=== PATIENT | male | born 1970 | race African-American/Black ===

== ENCOUNTER 2016-06-01 08:31 | Emergency (ER) | payer SELFPAY ==
[2016-06-01] MEDS ORDERED: KETOROLAC TROMETHAMINE INJ/PF 30 MG/1 ML SDV IV ONE (09:08)
[2016-06-01] MEDS ORDERED: DIPHENHYDRAMINE HCL 50 MG/ML VIAL IV ONE (09:08)
[2016-06-01] MEDS ORDERED: PROCHLORPERAZINE EDISYLATE INJ 10 MG/2 ML VIAL IV ONE (09:08)
[2016-06-01] MEDS ORDERED: NORMAL SALINE 1000 ML 1,000 ML IV ONE (09:08)
--- NOTE | 2016-06-01 09:40 | ER Document Report ---
ED Headache - General Chief Complaint: Headache Stated Complaint: HEADACHE Mode of Arrival: Ambulatory Information source: Patient Notes: Patient presents complaining of left-sided headache pain that started yesterday. Patient complains of nausea but denies any vomiting. Patient denies any head injury or fever. Patient states he does get occasional migraines and this is typical of migraines that he has had in the past. TRAVEL OUTSIDE OF THE [place] IN LAST 30 DAYS: No - HPI Patient complains to provider of: Headache Patient reports: Occasional migraines Onset: Yesterday Onset was: Gradual Timing: Still present Quality of pain: Throbbing Pain Level: 4 Associated symptoms: Nausea/vomiting - Nausea, Photophobia. 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 denies: Fever, Recent illness EENT: No symptoms reported Cardiovascular: No symptoms reported. denies: Chest pain Respiratory: No symptoms reported. denies: Cough, Short of breath Gastrointestinal: Nausea. denies: Abdominal pain, Vomiting Genitourinary: No symptoms reported Male Genitourinary: No symptoms reported Musculoskeletal: No symptoms reported. denies: Back pain, Neck pain Skin: No symptoms reported. denies: Rash Hematologic/Lymphatic: No symptoms reported Neurological/Psychological: Headaches. denies: Confusion, Lost consciousness Physical Exam - Vital signs Vitals: Temp Pulse Resp BP Pulse Ox 98.2 F 65 16 149/104 H 99 06/01/16 08:34 06/01/16 08:34 06/01/16 08:34 06/01/16 08:34 06/01/16 08:34 - General General appearance: Appears well, Alert In distress: None - HEENT Head: Normocephalic, Atraumatic Eyes: Normal Conjunctiva: Normal Extraocular movements intact: Yes Pupils: PERRL Ears: Normal External canal: Normal Tympanic membrane: Normal Nasal: Normal Mouth/Lips: Normal Mucous membranes: Normal Pharynx: Normal. No: Erythema, Exudate, Retropharyngeal abscess Neck: Normal, Supple. No: Lymphadenopathy, Meningismus - Respiratory Respiratory status: No respiratory distress Chest status: Nontender Breath sounds: Normal. No: Rales, Rhonchi, Stridor, Wheezing Chest palpation: Normal - Cardiovascular Rhythm: Regular Heart sounds: S1 appreciated, S2 appreciated Murmur: No - Abdominal Inspection: Normal Distension: No distension Tenderness: Nontender - Back Back: Normal, Nontender. No: CVA tenderness, Vertebra tenderness - Extremities General upper extremity: Normal inspection, Normal ROM General lower extremity: Normal inspection, Normal ROM - Neurological Neuro grossly intact: Yes Cognition: Normal [place] Coma Scale Eye Opening: Spontaneous [place] Coma Scale Verbal: Oriented [place] Coma Scale Motor: Obeys Commands Naomi Coma Scale Total: 15 Speech: Normal. No: Dysarthria Cranial nerves: Normal. No: Facial palsy, Tongue deviation Cerebellar coordination: Normal, Heel-hudson, Finger-nose rhombey, Rapid alt. movements. No: Gait ataxia Motor strength normal: LUE, RUE, LLE, RLE - Psychological Associated symptoms: Normal affect, Normal mood - Skin Skin Temperature: Warm Skin Moisture: Dry Skin Color: Normal Course - Re-evaluation Re-evalutation: 06/01/16 11:13 Patient resting in darkened room. Patient has yet to receive any his medications to treat his headache symptoms. 06/01/16 12:22 Patient resting with eyes closed, arouses easily to voice. Patient reports that headache pain is resolved this time. Discussed plan of care with patient, patient verbalized understanding and agrees with discharge plan of care. - Vital Signs Vital signs: Temp Pulse Resp BP Pulse Ox 97.8 F 65 15 125/75 97 06/01/16 12:36 06/01/16 08:34 06/01/16 12:37 06/01/16 12:37 06/01/16 12:37 Discharge - Discharge Clinical Impression: Headache Qualifiers: Headache type: unspecified Headache chronicity pattern: acute headache Intractability: not intractable Qualified Code(s): R51 - Headache Condition: Stable Disposition: HOME, SELF-CARE Instructions: Headache ([facility]), Pain Medication Injection ([facility]), Toradol Injection ([facility]), Use of Diphenhydramine, Intravenous Compazine for Headaches ( [facility]) Additional Instructions: Return immediately for any new or worsening symptoms Followup with your primary care provider, call tomorrow to make a followup appointment Forms: Return to Work Referrals: [facility] [Provider Group] - Follow up as needed
[2016-06-01 12:38] VITALS: BP 125/75
== END 2016-06-01 12:43 | disposition home or self-care (01) ==
LOC: ER 08:31
DX: R51 Headache (principal)
CPT/HCPCS: 99284; 96361; 96374; 96375; J1200; J1885; J0780; J7030

== ENCOUNTER 2016-10-30 00:44 | Emergency (ER) | payer SELFPAY ==
[2016-10-30 01:32] VITALS: BP 139/93
--- NOTE | 2016-10-30 02:12 | ER Document Report ---
ED General - General Chief Complaint: Arm Pain Stated Complaint: ARM PAIN,COUGH Time Seen by Provider: 10/30/16 01:59 Notes: Patient is a 46-year-old male who comes emergency department for chief complaint of pain in his left shoulder area, he states it feels like it is swollen at the top of his shoulder. 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 Patient also states that for 1 week he has had sinus congestion, postnasal drainage, and cough with some intermittent sinus headaches. He does not smoke. He denies fever. He denies dizziness, current headache, vomiting, chest pain, shortness of breath. TRAVEL OUTSIDE OF THE [place] IN LAST 30 DAYS: No - Related Data Allergies/Adverse Reactions: No Known Allergies Allergy (Verified 10/30/16 01:32) Past Medical History - General Information source: Patient - Social History Smoking Status: Never Smoker Frequency of alcohol use: None Drug Abuse: None Lives with: Family Family History: Reviewed & Not Pertinent, Hypertension Patient has suicidal ideation: No Patient has homicidal ideation: No Neurological Medical History: Reports: Hx Migraine Renal/ Medical History: Denies: Hx Peritoneal Dialysis Musculoskeltal Medical History: Denies Hx Gout - Immunizations Hx Diphtheria, Pertussis, Tetanus Vaccination: Yes Review of Systems - Review of Systems Constitutional: No symptoms reported EENT: See HPI Cardiovascular: No symptoms reported Respiratory: See HPI Gastrointestinal: No symptoms reported Genitourinary: No symptoms reported Male Genitourinary: No symptoms reported Musculoskeletal: See HPI Skin: No symptoms reported Hematologic/Lymphatic: No symptoms reported Neurological/Psychological: No symptoms reported Physical Exam - Vital signs Vitals: Temp Pulse Resp BP Pulse Ox 98.6 F 80 12 139/93 H 97 10/30/16 01:30 10/30/16 01:30 10/30/16 01:30 10/30/16 01:30 10/30/16 01:30 Interpretation: Normal - General General appearance: Appears well, Alert In distress: None - HEENT Head: Normocephalic, Atraumatic Eyes: Normal Conjunctiva: Normal Extraocular movements intact: Yes Eyelashes: Normal Pupils: PERRL Ears: Normal External canal: Normal Tympanic membrane: Normal Sinus: Other - Obvious sinus congestion and nasal congestion, no significant tenderness to the sinuses Nasal: Normal Mouth/Lips: Normal Mucous membranes: Normal Pharynx: Normal Neck: Normal - Respiratory Respiratory status: No respiratory distress Chest status: Nontender Breath sounds: Normal Chest palpation: Normal - Cardiovascular Rhythm: Regular Heart sounds: Normal auscultation Murmur: No - Abdominal Inspection: Normal Distension: No distension Bowel sounds: Normal Tenderness: Nontender Organomegaly: No organomegaly - Back Back: Normal, Nontender - Extremities General upper extremity: Other - Tenderness over the left supraspinatus and trapezius muscles, painful range of motion of the left shoulder, range of motion is still intact, strength intact, normal distal neurovascular exam. No signs of trauma. General lower extremity: Normal inspection, Nontender, Normal color, Normal ROM , Normal temperature, Normal weight bearing. No: Sandeep's sign - Neurological Neuro grossly intact: Yes Cognition: Normal Orientation: AAOx4 [place] Coma Scale Eye Opening: Spontaneous [place] Coma Scale Verbal: Oriented [place] Coma Scale Motor: Obeys Commands [place] Coma Scale Total: 15 Speech: Normal Motor strength normal: LUE, RUE, LLE, RLE Sensory: Normal - Psychological Associated symptoms: Normal affect, Normal mood - Skin Skin Temperature: Warm Skin Moisture: Dry Skin Color: Normal Course - Re-evaluation Re-evalutation: Patient with upper respiratory infection with worsening sinus symptoms for 1 week. After discussion agreed to give him amoxicillin. Patient with tenderness in the supraspinatus and trapezius muscles in the left shoulder with painful range of motion but range of motion is still intact. X- ray with no concerning abnormalities. Discussed different possibilities and treatment with patient, after discussion patient will be treated with prednisone , Robaxin, and given recommendations for follow-up. Discussed return precautions. Patient states understanding and agreement. - Vital Signs Vital signs: Temp Pulse Resp BP Pulse Ox 98.6 F 80 12 139/93 H 97 10/30/16 01:30 10/30/16 01:30 10/30/16 01:30 10/30/16 01:30 10/30/16 01:30 - Diagnostic Test Radiology reviewed: Image reviewed, Reports reviewed Discharge - Discharge Clinical Impression: Upper back pain Left shoulder pain Qualifiers: Chronicity: acute Qualified Code(s): M25.512 - Pain in left shoulder Sinusitis Qualifiers: Sinusitis location: unspecified location Chronicity: acute Recurrence: non- recurrent Qualified Code(s): J01.90 - Acute sinusitis, unspecified Condition: Stable Disposition: HOME, SELF-CARE Additional Instructions: The x-ray does not show any abnormalities. Your examination suggests this is either muscle spasm, impingement, rotator cuff, or other uncertain source not seen on x-ray. I recommend taking the prescribed medications, applying heat to your upper back, and following up with primary care for additional evaluation. Continue anti-cold remedies. Return to the emergency department for any concerning symptoms including numbness, redness to the area, fever, severe swelling, or any other concerning symptoms. Prescriptions: Amoxicillin Trihydrate [Amoxil 875 mg Tablet] 1 tab PO BID #20 tablet Methocarbamol [Robaxin 750 mg Tablet] 750 mg PO Q6 #20 tablet Prednisone [Deltasone 10 mg Tablet] 10 mg PO ASDIR PRN #21 tablet PRN Reason: Referrals: IVAN GARDNER MD [ACTIVE STAFF] - Follow up as needed
--- NOTE | 2016-10-30 02:38 | RADIOLOGY REPORT (SQ) ---
EXAM DESCRIPTION: SHOULDER LEFT 2 OR MORE VIEWS COMPLETED DATE/TIME: 10/30/2016 2:28 am REASON FOR STUDY: pain, difficult ROM COMPARISON: None. NUMBER OF VIEWS: Three views. TECHNIQUE: Internal rotation, external rotation, and Y view images acquired of the left shoulder. LIMITATIONS: None. FINDINGS: MINERALIZATION: Normal. BONES: No acute fracture or dislocation. No worrisome bone lesions. JOINTS: No dislocation. VISUALIZED LUNGS AND RIBS: No pneumothorax. No rib fracture. SOFT TISSUES: No radiopaque foreign body. OTHER: No other significant finding. IMPRESSION: NEGATIVE STUDY OF THE LEFT SHOULDER. NO RADIOGRAPHIC EVIDENCE OF ACUTE INJURY. TECHNICAL DOCUMENTATION: JOB ID: [id number] [employer]- All Rights Reserved
== END 2016-10-30 03:52 | disposition home or self-care (01) ==
LOC: ER 00:44
DX: M54.6 Pain in thoracic spine (principal); M25.512 Pain in left shoulder; J01.90 Acute sinusitis, unspecified
CPT/HCPCS: 99283

== ENCOUNTER 2017-08-30 20:26 | Emergency (ER) | payer SELFPAY ==
[2017-08-30 20:58] VITALS: BP 150/83
== END 2017-08-30 22:00 | disposition left against medical advice (07) ==
LOC: ER 20:26
DX: Z53.21 Procedure and treatment not carried out due to patient leaving prior to being seen by health care provider (principal)
CPT/HCPCS: 99282

== ENCOUNTER 2017-11-13 15:36 | Emergency (ER) | payer OTHER ==
[2017-11-13] MEDS ORDERED: HYDROCODONE/ACETAMINOPHEN 5-325 MG TABLET PO ONE (16:23)
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
[2017-11-13 18:14] VITALS: BP 130/98
== END 2017-11-13 18:12 | disposition home or self-care (01) ==
LOC: ER 15:36
DX: M54.5 Low back pain (principal); M25.561 Pain in right knee; V13.9XXA Unspecified pedal cyclist injured in collision with car, pick-up truck or van in traffic accident, initial encounter; Y93.55 Activity, bike riding
CPT/HCPCS: 99283

== ENCOUNTER 2017-12-08 12:03 | Emergency (ER) | payer SELFPAY ==
[2017-12-08] MEDS ORDERED: ASPIRIN 325 MG TABLET, ENT COATED PO ONE (12:26)
--- NOTE | 2017-12-08 12:28 | ER Document Report ---
ED Medical Screen (RME) - General Chief Complaint: Chest Pain Stated Complaint: CHEST PAIN,BACK PAIN, HEADACHE Time Seen by Provider: 12/08/17 12:26 Mode of Arrival: Wheelchair Information source: Patient TRAVEL OUTSIDE OF THE [place] IN LAST 30 DAYS: No - HPI Patient complains to provider of: cp Onset: This morning - pt states CP started earlier this am and still present after taking ASA. Denies SOB - Related Data Allergies/Adverse Reactions: No Known Allergies Allergy (Verified 12/08/17 12:26) Past Medical History - Social History Chew tobacco use (# tins/day): No Frequency of alcohol use: Rare Drug Abuse: None Neurological Medical History: Reports: Hx Migraine Renal/ Medical History: Denies: Hx Peritoneal Dialysis Musculoskeltal Medical History: Denies Hx Gout - Immunizations Hx Diphtheria, Pertussis, Tetanus Vaccination: Yes Physical Exam - Vital signs Vitals: Temp Pulse Resp BP Pulse Ox 98.6 F 76 14 145/101 H 98 12/08/17 12:08 12/08/17 12:08 12/08/17 12:08 12/08/17 12:08 12/08/17 12:08 Course - Vital Signs Vital signs: Temp Pulse Resp BP Pulse Ox 98.6 F 76 14 145/101 H 98 12/08/17 12:08 12/08/17 12:08 12/08/17 12:08 12/08/17 12:08 12/08/17 12:08
[2017-12-08 12:50] LABS: ABSOLUTE LYMPHOCYTES (AUTO) 1.1 10^3/uL (0.5-4.7); ABSOLUTE MONOCYTES (AUTO) 0.4 10^3/uL (0.1-1.4); ABSOLUTE NEUT (AUTO) 3.2 10^3/uL (1.7-8.2); BASOPHILS % (AUTO) 0.8 % (0-2); EOSINOPHILS % (AUTO) 0.9 % (0-6); HEMATOCRIT 44.7 % (37.9-51.0); HEMOGLOBIN 15.2 g/dL (13.5-17.0); MEAN CORPUSCULAR HEMOGLOBIN 30.2 pg (27.0-33.4); MEAN CORPUSCULAR HGB CONC 34.1 g/dL (32.0-36.0); MEAN CORPUSCULAR VOLUME 89 fl (80-97); MONOCYTES % (AUTO) 7.9 % (3-13); PLATELET COUNT 299 10^3/uL (150-450); RED BLOOD COUNT 5.04 10^6/uL (4.35-5.55); RED CELL DISTRIBUTION WIDTH 13.6 % (11.5-14.0); SEGMENTED NEUTROPHILS % (AUTO) 67.4 % (42-78); TOTAL CELLS COUNTED % (AUTO) 100 %; WHITE BLOOD COUNT 4.7 10^3/uL (4.0-10.5)
--- NOTE | 2017-12-08 13:00 | RADIOLOGY REPORT (SQ) ---
EXAM DESCRIPTION: CHEST 2 VIEWS COMPLETED DATE/TIME: 12/08/2017 12:52 pm REASON FOR STUDY: cp COMPARISON: None. EXAM PARAMETERS: NUMBER OF VIEWS: two views TECHNIQUE: Digital Frontal and Lateral radiographic views of the chest acquired. RADIATION DOSE: NA LIMITATIONS: none FINDINGS: LUNGS AND PLEURA: No opacities, masses or pneumothorax. No pleural effusion. MEDIASTINUM AND HILAR STRUCTURES: No masses or contour abnormalities. HEART AND VASCULAR STRUCTURES: Heart normal size. No evidence for failure. BONES: No acute findings. HARDWARE: None in the chest. OTHER: No other significant finding. IMPRESSION: NO ACUTE RADIOGRAPHIC FINDING IN THE CHEST. TECHNICAL DOCUMENTATION: JOB ID: [id number] [employer]- All Rights Reserved Reading location - IP/workstation name: [email or web address]
[2017-12-08 13:08] LABS: ALANINE AMINOTRANSFERASE 29 U/L (21-72); ALKALINE PHOSPHATASE 53 U/L (38-126); ANION GAP 10 (5-19); ASPARTATE AMINO TRANSFERASE 19 U/L (17-59); BILIRUBIN,DIRECT 0.2 mg/dL (0.0-0.4); BILIRUBIN,TOTAL 1.4 mg/dL (0.2-1.3); BLOOD UREA NITROGEN 11 mg/dL (7-20); CALCIUM 9.3 mg/dL (8.4-10.2); CARBON DIOXIDE 29 mmol/L (22-30); CHLORIDE 103 mmol/L (98-107); CREATINE KINASE 242 U/L (55-170); GLUCOSE 128 mg/dL (75-110); POTASSIUM 3.8 mmol/L (3.6-5.0); SODIUM 142.4 mmol/L (137-145); TOTAL PROTEIN 7.1 g/dL (6.3-8.2)
[2017-12-08 13:20] LABS: CREATINE KINASE MB 0.69 ng/mL (<4.55); TROPONIN I < 0.012 ng/mL
[2017-12-08] MEDS ORDERED: PROCHLORPERAZINE EDISYLATE INJ 10 MG/2 ML VIAL IV ONE (14:51)
[2017-12-08] MEDS ORDERED: KETOROLAC TROMETHAMINE INJ/PF 30 MG/1 ML SDV IV ONE (14:51)
[2017-12-08] MEDS ORDERED: ONDANSETRON HCL INJ/PF 4 MG/2 ML SDV IV ONE (14:51)
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
[2017-12-08 17:06] VITALS: BP 131/86
--- NOTE | 2017-12-08 22:04 | EKG REPORT ---
SEVERITY:- ABNORMAL ECG - SINUS RHYTHM PROBABLE LEFT ATRIAL ABNORMALITY ABNRM R PROG, CONSIDER ASMI OR LEAD PLACEMENT : Confirmed by: Jane Wall MD 08-Dec-2017 22:03:34
== END 2017-12-08 17:05 | disposition home or self-care (01) ==
LOC: ER 12:03
DX: R07.89 Other chest pain (principal); R51 Headache; T14.8XXD Other injury of unspecified body region, subsequent encounter; X58.XXXD Exposure to other specified factors, subsequent encounter; Z98.890 Other specified postprocedural states; M54.6 Pain in thoracic spine; R11.0 Nausea; I10 Essential (primary) hypertension
CPT/HCPCS: 93005; 99285; 96374; 96375; 36415; 82553; 82550; 85025; 80053; 84484; 71046; 93010; J1885; J0780; J2405

== ENCOUNTER 2017-12-12 10:49 | Emergency (ER) | payer OTHER ==
[2017-12-12 10:58] VITALS: BP 156/93
--- NOTE | 2017-12-12 11:14 | ER Document Report ---
HPI - HPI Patient complains to provider of: Suture removal forehead Onset: Other - 8 Days ago Pain Level: 3 Context: 47-year-old male with a vertical laceration forehead with 8 sutures placed in the emergency department. He is here for removal. Associated Symptoms: None Exacerbated by: Denies Relieved by: Denies Similar symptoms previously: No Recently seen / treated by doctor: No - ROS ROS below otherwise negative: Yes Systems Reviewed and Negative: Yes All other systems reviewed and negative Past Medical History - General Information source: Patient - Social History Smoking Status: Current Every Day Smoker Chew tobacco use (# tins/day): No Family History: Reviewed & Not Pertinent, Hypertension Patient has suicidal ideation: No Patient has homicidal ideation: No Neurological Medical History: Reports: Hx Migraine Renal/ Medical History: Denies: Hx Peritoneal Dialysis Musculoskeletal Medical History: Denies Hx Gout Surgical Hx: Negative - Immunizations Hx Diphtheria, Pertussis, Tetanus Vaccination: Yes Vertical Provider Document - CONSTITUTIONAL Agree With Documented VS: Yes Exam Limitations: No Limitations - INFECTION CONTROL TRAVEL OUTSIDE OF THE [place] IN LAST 30 DAYS: No - DERM Integumentary: Laceration - Healed vertical 2 cm laceration central forehead. Course - Vital Signs Vital signs: Temp Pulse Resp BP Pulse Ox 98.5 F 77 14 156/93 H 97 12/12/17 10:57 12/12/17 10:57 12/12/17 10:57 12/12/17 10:57 12/12/17 10:57 Discharge - Discharge Clinical Impression: Visit for suture removal Condition: Good Disposition: HOME, SELF-CARE Instructions: Suture Removal Additional Instructions: vaseline daily to er any concerns Forms: Return to Work
== END 2017-12-12 11:21 | disposition home or self-care (01) ==
LOC: ER 10:49
DX: S01.81XD Laceration without foreign body of other part of head, subsequent encounter (principal); X58.XXXD Exposure to other specified factors, subsequent encounter; F17.200 Nicotine dependence, unspecified, uncomplicated

== ENCOUNTER 2018-04-04 13:45 | Emergency (ER) | payer OTHER ==
[2018-04-04 14:18] VITALS: BP 147/86
--- NOTE | 2018-04-04 14:46 | ER Document Report ---
HPI - HPI Time Seen by Provider: 04/04/18 14:26 Pain Level: 5 Notes: Patient is a 48-year-old male who presents emergency department complaining of left dorsal foot pain status post injury prior to arrival. Patient states that a bookcase fell on his foot. Patient states that he still able to ambulate without difficulty otherwise. He has not noticed any bruising or swelling. Patient states that he also has a bony bump near his left shoulder has been bothersome over the last 6 months. He does not recall any injury. No other concerns or complaints. Denies drug allergies. Denies any headache, fever, neck pain, URI, sore throat, chest pain, palpitations, syncope, cough, shortness of breath, wheeze, dyspnea, abdominal pain, nausea/vomiting/diarrhea, urinary retention, dysuria, hematuria, loss of control of bowel or bladder, numbness/tingling, muscle paralysis/weakness, or rash. - ROS Systems Reviewed and Negative: Yes All other systems reviewed and negative Past Medical History - Social History Smoking Status: Current Every Day Smoker Family History: Reviewed & Not Pertinent, Hypertension Patient has suicidal ideation: No Patient has homicidal ideation: No Neurological Medical History: Reports: Hx Migraine Renal/ Medical History: Denies: Hx Peritoneal Dialysis Musculoskeletal Medical History: Denies Hx Gout - Immunizations Hx Diphtheria, Pertussis, Tetanus Vaccination: Yes Vertical Provider Document - CONSTITUTIONAL Agree With Documented VS: Yes Notes: PHYSICAL EXAMINATION: GENERAL: Well-appearing, well-nourished and in no acute distress. LUNGS: Breath sounds clear to auscultation bilaterally and equal. No wheezes rales or rhonchi. HEART: Regular rate and rhythm without murmurs, rubs, gallops. Musculoskeletal: Lt foot/ankle: No erythema/ecchymosis/deformity/swelling. FROM to passive/active. Strength 5+/5. N/V intact distal. + tenderness to the dorsal foot. No bony tenderness of the ankle. Achilles intact. Lt shoulder: FROM to passive/active. Strength 5+/5 due to pain. Neg speed test. No crepitus. No erythema or warmth. No deformity or ecchymosis. RC intact 5+/5 strength. + mild tenderness to the left AC joint. Extremities: No cyanosis, clubbing, or edema b/l. Peripheral pulses 2+. Capillary refill less than 3 seconds. NEUROLOGICAL: Normal speech, normal gait. Normal sensory, motor exams PSYCH: Normal mood, normal affect. SKIN: Warm, Dry, normal turgor, no rashes or lesions noted. - INFECTION CONTROL TRAVEL OUTSIDE OF THE [place] IN LAST 30 DAYS: No Course - Re-evaluation Re-evalutation: 04/04/18 15:25 Patient is an afebrile, well-hydrated, 48-year-old male who presents to the ED with left foot pain and lateral clavicular pain. Vitals are acceptable without any significant tachycardia, tachypnea, or hypoxia. PE is otherwise unremarkable for any neurovascular compromise, obvious tendon/ligament rupture, obvious fracture/dislocation, septic joint. X-rays unremarkable for any acute pathology. Patient declined any Tylenol or ice. Patient is nontoxic-appearing. Patient is able to ambulate and weight-bear. No other labs or imaging warranted at this time based on H&P. Conservative measures otherwise for symptoms. Recheck with your PCM in 3-5 days. Consider consult orthopedics. Return to the ED with any worsening/concerning symptoms otherwise as reviewed in discharge. Patient is in agreement. - Vital Signs Vital signs: Temp Pulse Resp BP Pulse Ox 98.6 F 57 L 16 147/86 H 99 04/04/18 14:17 04/04/18 14:17 04/04/18 14:17 04/04/18 14:17 04/04/18 14:17 Discharge - Discharge Clinical Impression: Left foot pain, Pain in left acromioclavicular joint Condition: Stable Disposition: HOME, SELF-CARE Additional Instructions: Rest, Ice, Compression, Elevation Tylenol/ibuprofen as needed Light stretches daily Strength exercises as able Moist heat and massage may help F/u with your PCP in 3-5 days for a recheck Consider consult(s) with Orthopedics/physical therapy for ongoing/worsening symptoms Return to the ED with any worsening symptoms and/or development of fever, headache, chest pain, palpitations, syncope, shortness of breath, trouble breathing, abdominal pain, n/v/d, muscle weakness/paralysis, numbness/tingling, swelling, redness, or other worsening symptoms that are concerning to you. Prescriptions: Naproxen 500 mg PO BID #10 tablet Forms: Elevated Blood Pressure, Smoking Cessation Education Referrals: [facility] [Provider Group] - Follow up as needed
--- NOTE | 2018-04-04 15:15 | RADIOLOGY REPORT (SQ) ---
EXAM DESCRIPTION: CLAVICLE LEFT COMPLETED DATE/TIME: 04/04/2018 3:05 pm REASON FOR STUDY: pain lateral near AC joint x months COMPARISON: None. NUMBER OF VIEWS: Two views. TECHNIQUE: Frontal and angled images were acquired of the left clavicle. LIMITATIONS: None. FINDINGS: MINERALIZATION: Normal. BONES: No acute fracture or dislocation. No worrisome bone lesions. Minimal osteophytosis at the ac romioclavicular joint. SOFT TISSUES: No obvious swelling or foreign body. OTHER: No other significant finding. IMPRESSION: No evidence of acute bony abnormality. Minimal degenerative changes at the acromioclavi cular joint. TECHNICAL DOCUMENTATION: JOB ID: [id number] [employer]- All Rights Reserved Reading location - IP/workstation name: [email or web address]
--- NOTE | 2018-04-04 15:16 | RADIOLOGY REPORT (SQ) ---
EXAM DESCRIPTION: FOOT LEFT COMPLETE COMPLETED DATE/TIME: 04/04/2018 3:06 pm REASON FOR STUDY: pain s/p crush injury today COMPARISON: None. NUMBER OF VIEWS: Three views. TECHNIQUE: AP, lateral and oblique radiographic images acquired of the left foot. LIMITATIONS: 10/16/2012 FINDINGS: MINERALIZATION: Normal. BONES: No acute fracture or dislocation. No worrisome bone lesions. JOINTS: No effusions. SOFT TISSUES: No soft tissue swelling. No foreign body. OTHER: Incidentally noted os naviculare and os peroneum. Calcaneal enthesophyte. IMPRESSION: No evidence of acute bony abnormality. TECHNICAL DOCUMENTATION: JOB ID: [id number] [employer]- All Rights Reserved Reading location - IP/workstation name: [email or web address]
== END 2018-04-04 15:35 | disposition home or self-care (01) ==
LOC: ER 13:45
DX: M79.672 Pain in left foot (principal); M25.512 Pain in left shoulder; F17.200 Nicotine dependence, unspecified, uncomplicated
CPT/HCPCS: 99283

== ENCOUNTER 2018-05-02 00:10 | Emergency (ER) | payer SELFPAY ==
--- NOTE | 2018-05-02 04:21 | ER Document Report ---
ED General - General Chief Complaint: Rib Pain Stated Complaint: RIB PAIN Time Seen by Provider: 05/02/18 04:13 Notes: Patient is a 48-year-old male that comes emergency department for chief complaint of left upper quadrant and left lower rib pain (he points). He states that he noticed this 2 days ago, symptoms have persisted. He notes this is more he states he does not have much of an appetite since this started however he denies nausea or vomiting. He states that it is worse when he bends all the way over or takes a deep breath. He denies shortness of breath, fever, cough, injury. Reports occasional alcohol, denies smoking, denies alcohol, denies recreational drugs, denies any daily medications or known medical problems. TRAVEL OUTSIDE OF THE [place] IN LAST 30 DAYS: No - Related Data Allergies/Adverse Reactions: No Known Allergies Allergy (Verified 04/04/18 13:46) Past Medical History - General Information source: Patient - Social History Smoking Status: Never Smoker Frequency of alcohol use: Occasional Drug Abuse: None Lives with: Alone Family History: Reviewed & Not Pertinent, Hypertension Patient has suicidal ideation: No Patient has homicidal ideation: No Neurological Medical History: Reports: Hx Migraine Renal/ Medical History: Denies: Hx Peritoneal Dialysis Musculoskeletal Medical History: Denies Hx Gout - Immunizations Hx Diphtheria, Pertussis, Tetanus Vaccination: Yes Review of Systems - Review of Systems Constitutional: No symptoms reported EENT: No symptoms reported Cardiovascular: No symptoms reported Respiratory: No symptoms reported Gastrointestinal: See HPI Genitourinary: No symptoms reported Male Genitourinary: No symptoms reported Musculoskeletal: No symptoms reported Skin: No symptoms reported Hematologic/Lymphatic: No symptoms reported Neurological/Psychological: No symptoms reported Physical Exam - Vital signs Vitals: Temp Pulse Resp BP Pulse Ox 98.1 F 79 16 142/93 H 97 05/02/18 00:32 05/02/18 00:32 05/02/18 00:32 05/02/18 00:32 05/02/18 00:32 - Notes Notes: GENERAL: Alert, interacts well. No acute distress. HEAD: Normocephalic, atraumatic. EYES: Pupils equal, round, and reactive to light. Extraocular movements intact. ENT: Oral mucosa moist, tongue midline. Oropharynx unremarkable. Airway patent. Nares patent, no nasal septal hematoma, TM's intact. NECK: Full range of motion. Supple. Trachea midline. LUNGS: Clear to auscultation bilaterally, no wheezes, rales, or rhonchi. No respiratory distress. HEART: Regular rate and rhythm. No murmur ABDOMEN: Tender in the left upper quadrant specifically. No other areas of tenderness including epigastric area, right upper quadrant, and lower abdomen. No guarding or rebound tenderness. Non-distended. Bowel sounds present in all 4 quadrants. GENITOURINARY: Deferred EXTREMITIES: Moves all 4 extremities spontaneously. No edema, normal radial and dorsalis pedis pulses bilaterally. No cyanosis. BACK: no cervical, thoracic, lumbar midline tenderness. No saddle anesthesia, normal distal neurovascular exam. NEUROLOGICAL: Alert and oriented x3. Normal speech. [cranial nerves II through XII grossly intact]. PSYCH: Normal affect, normal mood. SKIN: Warm, dry, normal turgor. No rashes or lesions noted. Course - Re-evaluation Re-evalutation: On examination patient has left upper quadrant pain of the abdomen. No tenderness over the ribs. Even points to his left upper quadrant as the area of pain. Chest x-ray is unremarkable, EKG is normal without concerning findings. CBC, chemistry, and lipase are all unremarkable. On reevaluation patient is sleeping but easily aroused. Low suspicion of acute abdomen or acute intrathoracic etiology based on his benign workup and evaluation. He is tolerating p.o. without difficulty. I discussed his workup. Had discussion patient will be treated at home for left upper quadrant pain, suspected gastritis, I did discuss return precautions in detail with patient, discussed recommendations. Patient states satisfaction and agreement. Stable at time of discharge. - Vital Signs Vital signs: Temp Pulse Resp BP Pulse Ox 98.1 F 79 16 142/93 H 97 05/02/18 00:32 05/02/18 00:32 05/02/18 00:32 05/02/18 00:32 05/02/18 00:32 - Laboratory Result Diagrams: 05/02/18 05:01 05/02/18 05:01 Laboratory results interpreted by me: 05/02/18 05/02/18 05:01 05:01 Hgb 13.1 L RDW 14.1 H Potassium 3.3 L AST 14 L Total Protein 6.1 L Albumin 3.4 L Discharge - Discharge Clinical Impression: Abdominal pain, left upper quadrant Condition: Stable Disposition: HOME, SELF-CARE Additional Instructions: Your x-ray, EKG, and laboratory workup are normal. Based on your workup and your evaluation I believe your symptoms are from inflammation of your upper gastrointestinal tract (gastritis). Take Carafate and Pepcid as prescribed to help treat this, you can take additional Rolaids, Tums, Maalox, etc. if needed. You can take Tylenol for pain. Avoid NSAIDs, alcohol, smoking, caffeine, spicy food. Start with clear fluids, progress to bland diet. Follow-up with primary care for additional evaluation and treatment including possible H. pylori testing. Return if you worsen including uncontrolled vomiting, vomiting blood, black stools, severe pain, fever, or any other concerning or worsening symptoms. Prescriptions: Famotidine [Pepcid 20 mg Tablet] 20 mg PO BID #12 tablet Sucralfate [Carafate 1 gm Tablet] 1 gm PO QID #20 tablet Forms: Return to Work
[2018-05-02 05:11] LABS: ABSOLUTE BASOPHILS # (AUTO) 0.1 10^3/uL (0.0-0.2); ABSOLUTE EOSINOPHILS # (AUTO) 0.1 10^3/uL (0.0-0.6); ABSOLUTE LYMPHOCYTES (AUTO) 1.7 10^3/uL (0.5-4.7); ABSOLUTE MONOCYTES (AUTO) 0.4 10^3/uL (0.1-1.4); ABSOLUTE NEUT (AUTO) 2.9 10^3/uL (1.7-8.2); EOSINOPHILS % (AUTO) 1.3 % (0-6); HEMATOCRIT 38.7 % (37.9-51.0); HEMOGLOBIN 13.1 g/dL (13.5-17.0); LYMPHOCYTES % (AUTO) 32.8 % (13-45); MEAN CORPUSCULAR HEMOGLOBIN 29.8 pg (27.0-33.4); MEAN CORPUSCULAR HGB CONC 33.8 g/dL (32.0-36.0); MEAN CORPUSCULAR VOLUME 88 fl (80-97); MONOCYTES % (AUTO) 8.3 % (3-13); PLATELET COUNT 234 10^3/uL (150-450); RED BLOOD COUNT 4.39 10^6/uL (4.35-5.55); RED CELL DISTRIBUTION WIDTH 14.1 % (11.5-14.0); SEGMENTED NEUTROPHILS % (AUTO) 56.6 % (42-78); TOTAL CELLS COUNTED % (AUTO) 100 %; WHITE BLOOD COUNT 5.2 10^3/uL (4.0-10.5)
[2018-05-02 05:28] LABS: ALANINE AMINOTRANSFERASE 24 U/L (21-72); ALBUMIN 3.4 g/dL (3.5-5.0); ALKALINE PHOSPHATASE 38 U/L (38-126); ANION GAP 9 (5-19); ASPARTATE AMINO TRANSFERASE 14 U/L (17-59); BILIRUBIN,DIRECT 0.2 mg/dL (0.0-0.4); BILIRUBIN,TOTAL 1.1 mg/dL (0.2-1.3); BLOOD UREA NITROGEN 10 mg/dL (7-20); CALCIUM 8.5 mg/dL (8.4-10.2); CARBON DIOXIDE 24 mmol/L (22-30); CHLORIDE 105 mmol/L (98-107); GLUCOSE 103 mg/dL (75-110); LIPASE 47.2 U/L (23-300); POTASSIUM 3.3 mmol/L (3.6-5.0); TOTAL PROTEIN 6.1 g/dL (6.3-8.2)
--- NOTE | 2018-05-02 06:53 | RADIOLOGY REPORT (SQ) ---
EXAM DESCRIPTION: XR CHEST 1 VIEW COMPLETED DATE/TME: 05/02/2018 04:19 CLINICAL HISTORY: 48 years Male, left lower rib pain COMPARISON: None. NUMBER OF VIEWS/TECHNIQUE: 1/AP FINDINGS: Adequate lung volume, clear parenchyma, normal cardiac silhouette, and intact bony thorax. IMPRESSION: No acute cardiopulmonary findings.
[2018-05-02 07:34] VITALS: BP 128/89
--- NOTE | 2018-05-02 14:48 | EKG REPORT ---
SEVERITY:- NORMAL ECG - SINUS RHYTHM : Confirmed by: Jane Wall MD 02-May-2018 14:47:58
--- NOTE | 2018-05-02 14:48 | EKG REPORT ---
SEVERITY:- NORMAL ECG - SINUS RHYTHM : Confirmed by: Jane Wall MD 02-May-2018 14:47:53
== END 2018-05-02 07:25 | disposition home or self-care (01) ==
LOC: ER 00:10
DX: R10.12 Left upper quadrant pain (principal); R07.81 Pleurodynia
CPT/HCPCS: 36415; 71045; 80053; 83690; 84484; 85025; 93005; 93010; 99284

== ENCOUNTER 2018-11-05 02:06 | Emergency (ER) | payer SELFPAY ==
[2018-11-05] MEDS ORDERED: ACETAMINOPHEN 325 MG TABLET PO ONE (02:36)
--- NOTE | 2018-11-05 03:14 | RADIOLOGY REPORT (SQ) ---
EXAM DESCRIPTION: XR ANKLE 3 OR MORE VIEWS COMPLETED DATE/TME: 11/05/2018 02:38 CLINICAL HISTORY: 48 years, Male, BONE TENDERNESS COMPARISON: None. FINDINGS: 3 views of the left ankle. No acute fracture or dislocation. Normal osseous mineralization. Enthesophyte at the Achilles tendon insertion. Talar dome and tibial plafond have appropriate alignment. IMPRESSION: 1. No acute fracture or dislocation. copyright 2010 [employer]- All Rights Reserved
--- NOTE | 2018-11-05 04:16 | ER Document Report ---
HPI - HPI Patient complains to provider of: Left ankle pain Time Seen by Provider: 11/05/18 04:03 Pain Level: 2 Context: Patient is a 48-year-old male that comes emergency department for chief complaint of pain in the left ankle with some swelling. He states he stands on it constantly at work and he noticed it became painful to stand on. He is unsure of injury. He denies any other areas of swelling or pain. He denies history of the same, denies history of gout. He denies any daily medications or diagnosed medical problems. - REPRODUCTIVE Reproductive: DENIES: : - DERM Skin Color: Normal Past Medical History - General Information source: Patient - Social History Smoking Status: Never Smoker Chew tobacco use (# tins/day): No Frequency of alcohol use: Rare Drug Abuse: None Lives with: Family Family History: Reviewed & Not Pertinent, Hypertension Patient has suicidal ideation: No Patient has homicidal ideation: No Neurological Medical History: Reports: Hx Migraine Renal/ Medical History: Denies: Hx Peritoneal Dialysis Musculoskeletal Medical History: Denies Hx Gout - Immunizations Hx Diphtheria, Pertussis, Tetanus Vaccination: Yes Vertical Provider Document - CONSTITUTIONAL General Appearance: WD/WN, No Apparent Distress - INFECTION CONTROL TRAVEL OUTSIDE OF THE [place] IN LAST 30 DAYS: No - HEENT HEENT: Atraumatic, Normocephalic - NECK Neck: Normal Inspection - RESPIRATORY Respiratory: Breath Sounds Normal, No Respiratory Distress - CARDIOVASCULAR Cardiovascular: Regular Rate, Regular Rhythm - GI/ABDOMEN Gastrointestinal: Abdomen Soft, Abdomen Non-Tender - BACK Back: Normal Inspection - MUSCULOSKELETAL/EXTREMETIES Musculoskeletal/Extremeties: MAEW, FROM, Tender - Mild soft tissue swelling and tenderness over the left lateral malleolus and top of the foot at the base of the ankle. Foot exam normal otherwise. Range of motion of the ankle intact. Normal capillary refill and sensation. Normal temperature and coloration. Normal leg, knee, hip exam otherwise. - NEURO Level of Consciousness: Awake, Alert, Appropriate Motor/Sensory: No Motor Deficit, No Sensory Deficit - DERM Integumentary: Warm, Dry, No Rash Course - Re-evaluation Re-evalutation: There is minimal soft tissue swelling and pain over the left lateral malleolus and top of the ankle, no abnormal heat, no significant tenderness, patient can stand on this, range of motion intact. Foot exam otherwise. Normal x-ray. Most likely overuse or sprain, provided treatment for this, discussed expectations, follow-up, and return precautions. Patient states understanding and agreement. - Vital Signs Vital signs: Temp Pulse Resp BP Pulse Ox 98.5 F 79 18 133/85 H 97 11/05/18 02:24 11/05/18 02:24 11/05/18 02:24 11/05/18 02:24 11/05/18 02:24 Procedures - Immobilization Left ankle Immobilizer type: Ganesh wrap, Ankle stirrup Performed by: ANICETO Post-Proc Neuro Vasc Exam: Normal Alignment checked and good: Yes Discharge - Discharge Clinical Impression: Left ankle pain Qualifiers: Chronicity: acute Qualified Code(s): M25.572 - Pain in left ankle and joints of left foot Condition: Stable Disposition: HOME, SELF-CARE Additional Instructions: The x-ray shows a little spur at the back of your foot but not in the pain location. No fracture or concerning finding is seen. There is some soft tissue swelling indicating a sprain but this should resolve with care. I recommend icing the area 3-4 times a day, taking the prescribed anti- inflammatory, elevating when possible, using an ankle stirrup and Ganesh wrap with the crutches for the first 2 to 3 days. Symptoms should resolve. After symptoms resolve resume normal activity. If symptoms continue follow-up with primary care or the listed orthopedic referral. Return for any concerning symptoms including severe pain, developing redness, fever, or any other concerning symptoms. Prescriptions: Naproxen 500 mg PO BID PRN #20 tablet PRN Reason: Forms: Return to Work Referrals: IVAN GARDNER MD [ACTIVE STAFF] - Follow up in 1 week
[2018-11-05 05:09] VITALS: BP 101/57
== END 2018-11-05 04:55 | disposition home or self-care (01) ==
LOC: ER 02:06
DX: M25.572 Pain in left ankle and joints of left foot (principal); M79.89 Other specified soft tissue disorders
CPT/HCPCS: 73610; L1902

== ENCOUNTER 2019-07-08 13:43 | Emergency (ER) | payer SELFPAY ==
[2019-07-08 13:52] VITALS: BP 143/89
[2019-07-08] MEDS ORDERED: HYDROCODONE/ACETAMINOPHEN 5-325 MG TABLET PO ONE (14:00)
--- NOTE | 2019-07-08 14:07 | ER Document Report ---
HPI - HPI Patient complains to provider of: right arm pain Time Seen by Provider: 07/08/19 13:53 Pain Level: 5 Context: 49-year-old male no previous medical problems presents to the emergency room complaining of pain that radiates from his right elbow down to his thumb for the past week. He denies any trauma or injury. Has been taking Tylenol and BC powder without relief. Patient is right-handed. 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 He denies any acute trauma or injury to his elbow, forearm, or wrist. He denies any numbness or tingling. Denies any generalized weakness. Associated Symptoms: None Exacerbated by: Movement Relieved by: Denies Similar symptoms previously: No Recently seen / treated by doctor: No - ROS ROS below otherwise negative: Yes - CONSTITUTIONAL Constitutional: DENIES: Fever - NEURO Neurology: DENIES: Headache, Weakness - GASTROINTESTINAL Gastrointestinal: DENIES: Nausea - REPRODUCTIVE Reproductive: DENIES: : - MUSCULOSKELETAL Musculoskeletal: REPORTS: Extremity pain - DERM Skin Color: Normal Skin Problems: None Past Medical History - General Information source: Patient - Social History Smoking Status: Never Smoker Chew tobacco use (# tins/day): No Frequency of alcohol use: Occasional Drug Abuse: None Family History: Reviewed & Not Pertinent, Hypertension Patient has homicidal ideation: No Neurological Medical History: Reports: Hx Migraine Renal/ Medical History: Denies: Hx Peritoneal Dialysis Musculoskeletal Medical History: Denies Hx Gout - Immunizations Hx Diphtheria, Pertussis, Tetanus Vaccination: Yes Vertical Provider Document - CONSTITUTIONAL Agree With Documented VS: Yes Exam Limitations: No Limitations General Appearance: Mild Distress - INFECTION CONTROL TRAVEL OUTSIDE OF THE [place] IN LAST 30 DAYS: No - HEENT HEENT: Atraumatic, Normocephalic - NECK Neck: Normal Inspection, Supple - RESPIRATORY Respiratory: Breath Sounds Normal, No Respiratory Distress, Chest Non-Tender. negative: Rales, Rhonchi, Wheezing - CARDIOVASCULAR Cardiovascular: Regular Rate, Regular Rhythm, No Murmur - MUSCULOSKELETAL/EXTREMETIES Musculoskeletal/Extremeties: MAEW, FROM, Non-Tender Notes: Increased pain when hyperextending right thumb causing pain to radiate up to right elbow. Positive Katty, positive Tinel's. Nontender to palpation. No obvious deformity noted. Full range of motion with flexion, extension internal and external rotation to the right elbow. 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 Full range of motion with flexion extension to the fingers to the right hand. - NEURO Level of Consciousness: Awake, Alert, Appropriate Motor/Sensory: No Motor Deficit, No Sensory Deficit Notes: Positive right radial pulse. Capillary refill less than 3 seconds. - DERM Integumentary: Warm, Dry Course - Re-evaluation Re-evalutation: 07/08/19 14:00 Discussed diagnosis with patient. Counseled to wear brace until seen by orthopedics. Can remove for bed and showering. Medications as prescribed. Neurovascularly intact. Patient was given strict return to the emergency room guidelines. Return for any new or worsening symptoms. All questions were answered. Patient verbalized understanding and agrees with plan of care. - Vital Signs Vital signs: Temp Pulse Resp BP Pulse Ox 98.6 F 73 16 143/89 H 99 07/08/19 13:53 07/08/19 13:51 07/08/19 13:51 07/08/19 13:51 07/08/19 13:51 Discharge - Discharge Clinical Impression: Tendonitis, Carpal tunnel syndrome of right wrist Condition: Stable Disposition: HOME, SELF-CARE Instructions: Carpal Tunnel Syndrome ([facility]), Tendonitis ([facility]) Additional Instructions: Wear wrist splint for comfort may take off to sleep and shower. Medications as prescribed. Outpatient follow-up with orthopedics as discussed. Return for any new or worsening symptoms. Prescriptions: Diclofenac Sodium 75 mg PO BID 10 Days #20 tablet.dr Referrals: ANDRE THOMPSON MD [ACTIVE PROVISIONAL STAFF] - Follow up in 3-5 days (Call for an outpatient follow-up appointment)
== END 2019-07-08 14:08 | disposition home or self-care (01) ==
LOC: ER 13:43
DX: G56.01 Carpal tunnel syndrome, right upper limb (principal); M77.9 Enthesopathy, unspecified; M79.601 Pain in right arm; M25.521 Pain in right elbow
CPT/HCPCS: 99283

== ENCOUNTER 2019-07-25 14:45 | Emergency (ER) | payer SELFPAY ==
--- NOTE | 2019-07-25 15:27 | RADIOLOGY REPORT (SQ) ---
EXAM DESCRIPTION: FOREARM RIGHT IMAGES COMPLETED DATE/TIME: 07/25/2019 3:17 pm REASON FOR STUDY: right hand/forearm pain COMPARISON: None. NUMBER OF VIEWS: Two views. TECHNIQUE: Two radiographic images acquired of the right forearm, including elbow and wrist in at le ast one projection. LIMITATIONS: None. FINDINGS: MINERALIZATION: Normal. BONES: Mild Madelung deformity. The ulna is slightly shortened and subluxed dorsally. SOFT TISSUES: No obvious swelling or foreign body. OTHER: No other significant finding. IMPRESSION: Mild Madelung deformity. No acute finding. TECHNICAL DOCUMENTATION: JOB ID: [id number] 2010 [employer]- All Rights Reserved Reading location - IP/workstation name: [email or web address]
--- NOTE | 2019-07-25 15:29 | RADIOLOGY REPORT (SQ) ---
EXAM DESCRIPTION: HAND RIGHT 3 VIEWS IMAGES COMPLETED DATE/TIME: 07/25/2019 3:17 pm REASON FOR STUDY: right hand/forearm pain COMPARISON: None. EXAM PARAMETERS: NUMBER OF VIEWS: Three views. TECHNIQUE: AP, lateral and oblique radiographic images acquired of the right hand. LIMITATIONS: None. FINDINGS: MINERALIZATION: Normal. BONES: No acute fracture or dislocation. No worrisome bone lesions. JOINTS: No effusions. SOFT TISSUES: No soft tissue swelling. No foreign body. OTHER: No other significant finding. IMPRESSION: NEGATIVE STUDY OF THE RIGHT HAND. NO RADIOGRAPHIC EVIDENCE OF ACUTE INJURY. TECHNICAL DOCUMENTATION: JOB ID: [id number] 2010 [employer] All Rights Reserved Reading location - IP/workstation name: [email or web address]
--- NOTE | 2019-07-25 16:17 | ER Document Report ---
HPI - HPI Time Seen by Provider: 07/25/19 15:04 Pain Level: 5 Context: Patient is a 49-year-old female who presents to the emergency department with a chief complaint of right wrist pain. 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 He was seen on July 07 with the same symptoms. At that time, x-rays were not taken. Patient has not followed up with orthopedics. Patient states that medication he got did not help him. - ROS Systems Reviewed and Negative: Yes All other systems reviewed and negative - REPRODUCTIVE Reproductive: DENIES: : - MUSCULOSKELETAL Musculoskeletal: REPORTS: Extremity pain - DERM Skin Color: Normal Skin Problems: None Past Medical History - Social History Smoking Status: Never Smoker Chew tobacco use (# tins/day): No Frequency of alcohol use: None Drug Abuse: None Family History: Reviewed & Not Pertinent, Hypertension Patient has homicidal ideation: No Neurological Medical History: Reports: Hx Migraine Renal/ Medical History: Denies: Hx Peritoneal Dialysis Musculoskeletal Medical History: Denies Hx Gout - Immunizations Hx Diphtheria, Pertussis, Tetanus Vaccination: Yes Vertical Provider Document - CONSTITUTIONAL Agree With Documented VS: Yes Exam Limitations: No Limitations General Appearance: No Apparent Distress - INFECTION CONTROL TRAVEL OUTSIDE OF THE [place] IN LAST 30 DAYS: No - HEENT HEENT: Atraumatic, Normocephalic, PERRLA - NECK Neck: Normal Inspection - RESPIRATORY Respiratory: No Respiratory Distress - CARDIOVASCULAR Cardiovascular: Regular Rate Pulses: Normal: Radial - MUSCULOSKELETAL/EXTREMETIES Musculoskeletal/Extremeties: FROM - NEURO Level of Consciousness: Awake, Alert, Appropriate Motor/Sensory: No Motor Deficit, No Sensory Deficit - DERM Integumentary: Warm, Dry, No Rash Course - Re-evaluation Re-evalutation: 07/25/19 X-ray shows no acute findings in his hands, but a Madelung's deformity was noted by the radiologist. I discussed these findings with the patient. 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 Capillary refill less than 3 seconds. Radial pulse 2+. No vascular compromise noted. The patient agrees to follow-up with orthopedics. We will place the patient in another cock-up splint, as he states the cock-up splint he was given was too big. Follow-up precautions were given. Verbal discharge instructions were given to the patient. They verbalized understanding. They are stable for discharge. - Vital Signs Vital signs: Temp Pulse Resp BP Pulse Ox 99.2 F 87 16 149/100 H 99 07/25/19 14:51 07/25/19 14:51 07/25/19 14:51 07/25/19 14:51 07/25/19 14:51 Discharge - Discharge Clinical Impression: Right hand pain, Right arm pain Condition: Stable Disposition: HOME, SELF-CARE Additional Instructions: You were seen today in the emergency department for right hand and arm pain. You have shortening of your ulna bone in your arm. Please rest your hand. You are being placed on steroids to help with inflammation. Follow-up with orthopedics in regards to this issue. The brace that you were given the other day to help with pain. Prescriptions: Methylprednisolone [Medrol Dosepack (4 mg/Tab) 21 Tab/Dosepak] 4 mg PO ASDIR PRN #21 tab.ds.pk PRN Reason: Forms: Return to Work Referrals: SUSU RODRIGUEZ JR, DO [ACTIVE PROVISIONAL STAFF] - Follow up in 3-5 days
[2019-07-25 16:27] VITALS: BP 149/92
== END 2019-07-25 16:28 | disposition home or self-care (01) ==
LOC: ER 14:45
DX: M79.641 Pain in right hand (principal); M79.601 Pain in right arm; Q74.0 Other congenital malformations of upper limb(s), including shoulder girdle; M25.531 Pain in right wrist; M79.604 Pain in right leg
CPT/HCPCS: 99283

== ENCOUNTER 2019-10-10 21:21 | Emergency (ER) | payer SELFPAY ==
[2019-10-10] MEDS ORDERED: DEXAMETHASONE SOD PHOSPHATE INJ 4 MG/1 ML VIAL IM ONE (22:36)
[2019-10-10] MEDS ORDERED: METHOCARBAMOL 750 MG TABLET PO ONE (22:36)
--- NOTE | 2019-10-10 22:40 | ER Document Report ---
HPI - HPI Time Seen by Provider: 10/10/19 22:30 Pain Level: 4 Notes: 41-year-old male patient presented to the emergency department chief complaint of right arm pain that has been ongoing for 3 to 4 months. He states he has been seen here several times, he has not followed up with orthopedic. He denies any known injury to the area. He has not taken any medications for his symptoms. He denies any chest pain, shortness of breath, fever or chills. - ROS Systems Reviewed and Negative: Yes All other systems reviewed and negative - REPRODUCTIVE Reproductive: DENIES: : - MUSCULOSKELETAL Musculoskeletal: REPORTS: Extremity pain - R arm Past Medical History - General Information source: Patient - Social History Smoking Status: Never Smoker Chew tobacco use (# tins/day): No Frequency of alcohol use: Occasional Drug Abuse: None Family History: Reviewed & Not Pertinent, Hypertension Neurological Medical History: Reports: Hx Migraine Renal/ Medical History: Denies: Hx Peritoneal Dialysis Musculoskeletal Medical History: Denies Hx Gout - Immunizations Hx Diphtheria, Pertussis, Tetanus Vaccination: Yes Vertical Provider Document - CONSTITUTIONAL Notes: PHYSICAL EXAMINATION: GENERAL: Well-appearing, well-nourished and in no acute distress. HEAD: Atraumatic, normocephalic. EYES: Pupils equal round extraocular movements intact, conjunctiva are normal. ENT: Nares patent NECK: Normal range of motion LUNGS: No respiratory distress Musculoskeletal: Normal range of motion to right arm, no swelling, erythema, ecchymosis or abnormality noted. Tenderness with abduction. Strong radial pulse, cap refill less than 3 seconds. Normal motor and sensation. NEUROLOGICAL: Normal speech, normal gait. PSYCH: Normal mood, normal affect. SKIN: Warm, Dry, normal turgor, no rashes or lesions noted. - INFECTION CONTROL TRAVEL OUTSIDE OF THE [place] IN LAST 30 DAYS: No Course - Re-evaluation Re-evalutation: Patient presenting to the emergency department with chronic right arm pain. He has been seen in this emergency department several times, he has had a normal work-up each time. He was supposed to follow-up with orthopedics which she has not done. He is requesting a steroid shot. He is not diabetic, we will give him a shot of Decadron. He was encouraged to follow-up with either orthopedics or a primary care provider for further management of this chronic pain. Patient and verbalized understanding and agreement this plan. - Vital Signs Vital signs: Temp Pulse Resp BP Pulse Ox 98.5 F 83 23 H 138/80 H 97 10/10/19 21:40 10/10/19 21:40 10/10/19 21:40 10/10/19 21:40 10/10/19 21:40 Discharge - Discharge Clinical Impression: Right arm pain Condition: Stable Disposition: HOME, SELF-CARE Additional Instructions: Please take ibuprofen 600 mg every 6 hours. Take the muscle relaxer as prescribed. The steroid shot that we gave you should last in your system for at least 3 days. I would like you to consider following up with either orthopedics or a primary care provider. The information for the [facility] is on the second page of this packet. They may be able to get you an appointment there. If not I have also listed to orthopedic providers in [place]. Return to the emergency department with new or worsening symptoms. Prescriptions: Methocarbamol [Robaxin 750 mg Tablet] 750 mg PO Q4 #30 tablet Forms: Return to Work Referrals: NICOLE FELDER DO [ACTIVE STAFF] - Follow up as needed ANDRE THOMPSON MD [ACTIVE STAFF] - Follow up as needed
[2019-10-10 22:56] VITALS: BP 136/80
== END 2019-10-10 22:56 | disposition home or self-care (01) ==
LOC: ER 21:21
DX: G89.29 Other chronic pain (principal); M79.601 Pain in right arm
CPT/HCPCS: 99284; 96372; J1100; J3490

== ENCOUNTER 2019-11-27 20:48 | Emergency (ER) | payer OTHER ==
--- NOTE | 2019-11-27 22:36 | RADIOLOGY REPORT (SQ) ---
CLINICAL INDICATION: behind the knee pain and calf pain. . TECHNIQUE: 4 view(s) were obtained of the right knee. COMPARISON: None. FINDINGS: No acute displaced fracture is identified of the knee. Alignment appears anatomic. Joint spaces are within normal limits for age. Small joint effusion. Surrounding soft tissues are unremarkable. IMPRESSION: No evidence of acute displaced fracture of the knee.
--- NOTE | 2019-11-27 22:37 | RADIOLOGY REPORT (SQ) ---
INDICATION: right leg pain/swelling. PROCEDURE: Real-time grayscale, color, and pulse Doppler ultrasound imaging of the right lower extremity deep venous system was performed. 43 images. COMPARISON: None FINDINGS: The common femoral, superficial femoral, and popliteal veins demonstrate normal compressibility, phasic flow, augmentation and capps scale evaluation. There is no evidence of intraluminal thrombus . The visualized deep calf veins appear patent. IMPRESSION: No evidence for acute deep venous thrombus from the common femoral to the popliteal veins.
--- NOTE | 2019-11-27 22:49 | ER Document Report ---
HPI - HPI Patient complains to provider of: Right leg pain and swelling, right wrist pain Time Seen by Provider: 11/27/19 21:43 Notes: 49-year-old male to the emergency department with complaints of right leg swelling that began 2 days ago and right wrist pain that is been going on for couple of months. He states that he did not fall on the leg or the wrist. He states that he just noticed that the back of his right knee and the calf were painful and swollen. He states that his right wrist has been painful for several months and he has numbness and tingling into his fingers. He states he gets worse at night. He has not taken anything for his pain prior to arrival. He denies any past medical history for clots in his leg. He denies any recent travel. He denies any recent surgeries. - ROS Systems Reviewed and Negative: Yes All other systems reviewed and negative - CONSTITUTIONAL Constitutional: DENIES: Fever, Chills - EENT EENT: DENIES: Sore Throat, Ear Pain, Congestion - NEURO Neurology: DENIES: Headache - CARDIOVASCULAR Cardiovascular: DENIES: Chest pain - RESPIRATORY Respiratory: DENIES: Trouble Breathing, Coughing - GASTROINTESTINAL Gastrointestinal: DENIES: Abdominal Pain, Nausea, Patient vomiting, Diarrhea - MUSCULOSKELETAL Musculoskeletal: REPORTS: Extremity pain, Swelling - Right lower leg swelling and behind the right knee pain, right wrist pain w - DERM Skin Color: Normal Skin Problems: None Past Medical History - General Information source: Patient - Social History Smoking Status: Current Every Day Smoker Frequency of alcohol use: None Drug Abuse: None Family History: Reviewed & Not Pertinent, Hypertension Neurological Medical History: Reports: Hx Migraine Renal/ Medical History: Denies: Hx Peritoneal Dialysis Musculoskeletal Medical History: Denies Hx Gout - Immunizations Hx Diphtheria, Pertussis, Tetanus Vaccination: Yes Vertical Provider Document - CONSTITUTIONAL Agree With Documented VS: Yes Exam Limitations: No Limitations General Appearance: WD/WN - INFECTION CONTROL TRAVEL OUTSIDE OF THE [place] IN LAST 30 DAYS: No - HEENT HEENT: Atraumatic, Normocephalic, PERRLA - NECK Neck: Normal Inspection, Supple - RESPIRATORY Respiratory: Breath Sounds Normal, No Respiratory Distress. negative: Rales, Rhonchi, Wheezing - CARDIOVASCULAR Cardiovascular: Regular Rate, Regular Rhythm, No Murmur - GI/ABDOMEN Gastrointestinal: Abdomen Soft, Abdomen Non-Tender, No Organomegaly - MUSCULOSKELETAL/EXTREMETIES Notes: There is mild tenderness to palpation to the posterior right knee into the popliteal fossa and there is also tenderness to palpation to the right lower leg. There is mild edema but there is no warmth. Nontender to palpation over the foot and hip on the right side. DP pulses are intact and equal. No tenderness to palpation on the left hip, left knee, left ankle. Range of motion is intact with 5 out of 5 strength in bilateral lower extremities against resistance in flexion and extension. To the right wrist there is tenderness to palpation over the volar surface. Patient has a positive Tinel's and Phalen sign to the right wrist. He can wiggle all fingers. He is got 5 out of 5 strength in handgrip bilaterally. He has no snuffbox tenderness. - NEURO Level of Consciousness: Awake, Alert, Appropriate Motor/Sensory: No Motor Deficit, No Sensory Deficit - DERM Integumentary: Warm, Dry, No Rash Course - Re-evaluation Re-evalutation: Impression: Right knee and lower leg pain. Carpal tunnel syndrome of the right wrist. There is no clot on the leg and x-ray is reassuring of the knee. Will place in an Ganesh wrap and put wrist in a Velcro wrist splint. Encouraged the patient to follow-up with orthopedist without fail. Will send home with NSAIDs and muscle relaxants. Patient agrees. - Vital Signs Vital signs: Temp Pulse Resp BP Pulse Ox 98.2 F 63 16 139/84 H 97 11/27/19 21:22 11/27/19 21:22 11/27/19 21:22 11/27/19 21:22 11/27/19 21:22 - Diagnostic Test Radiology reviewed: Image reviewed, Reports reviewed Procedures - Immobilization Right Wrist Time completed: 23:42 Pre-Proc Neuro Vasc Exam: Normal Immobilizer type: Other - velcro cock up Performed by: PCT Post-Proc Neuro Vasc Exam: Normal, Unchanged from pre-exam Alignment checked and good: Yes Discharge - Discharge Clinical Impression: Right calf pain, Carpal tunnel syndrome of right wrist Right knee pain Qualifiers: Chronicity: acute Qualified Code(s): M25.561 - Pain in right knee Condition: Stable Disposition: HOME, SELF-CARE Instructions: Carpal Tunnel Syndrome ([facility]) Additional Instructions: Today had a negative ultrasound for clot in your leg. Your x-ray of your knee looked good as well. Wear Ganesh wrap. You have carpal tunnel in your right wrist. Please follow-up with orthopedist without fail for further evaluation of both items. Take medicines as prescribed. Ice the knee 3 times a day for 20 minutes at a time. Prescriptions: Cyclobenzaprine HCl [Flexeril 10 mg Tablet] 10 mg PO TID #20 tablet Methylprednisolone [Medrol Dosepack (4 mg/Tab) 21 Tab/Dosepak] 4 mg PO ASDIR PRN #21 tab.ds.pk PRN Reason: Diclofenac Sodium [Voltaren 25 Mg Tablet] 25 mg PO BID #20 tablet.dr Forms: Return to Work Referrals: SUSU RODRIGUEZ JR, [ACTIVE PROVISIONAL STAFF] - Follow up in 1 week
[2019-11-27] MEDS ORDERED: NAPROXEN 250 MG TABLET PO ONE (23:36)
[2019-11-27 23:44] VITALS: BP 128/84
== END 2019-11-27 23:55 | disposition home or self-care (01) ==
LOC: ER 20:48
DX: M79.661 Pain in right lower leg (principal); M25.561 Pain in right knee; G56.01 Carpal tunnel syndrome, right upper limb; R60.0 Localized edema; F17.200 Nicotine dependence, unspecified, uncomplicated
CPT/HCPCS: 93971; 99285

== ENCOUNTER 2020-01-04 21:57 | Emergency (ER) | payer OTHER ==
[2020-01-04] MEDS ORDERED: KETOROLAC TROMETHAMINE 60 MG/2 ML SDV IM ONE (23:34)
--- NOTE | 2020-01-04 23:38 | ER Document Report ---
ED General - General Chief Complaint: Arm Pain Stated Complaint: RIGHT SIDE PAIN Time Seen by Provider: 01/04/20 23:34 Mode of Arrival: Ambulatory Information source: Patient Notes: Patient presents to the ER for evaluation of right arm pain radiating into the right shoulder. The patient states his pain is worse at nighttime after a long shift at work. The patient states he has been seen multiple times for this pain. He denies weakness or numbness. He denies chest pain. He denies shortness of breath. The patient states pain is markedly worse when he tries to range his arm. He is wearing what appears to be a thumb spica splint for previously diagnosed carpal tunnel. Nursing notes reviewed and past medical, social, and family histories reviewed and validated. TRAVEL OUTSIDE OF THE [place] IN LAST 30 DAYS: No - Related Data Allergies/Adverse Reactions: No Known Allergies Allergy (Verified 07/25/19 15:05) Past Medical History - General Information source: Patient - Social History Smoking Status: Former Smoker Cigarette use (# per day): No Chew tobacco use (# tins/day): No Frequency of alcohol use: Rare Drug Abuse: None Lives with: Family Family History: Reviewed & Not Pertinent, Hypertension Patient has suicidal ideation: No Patient has homicidal ideation: No - Past Medical History Cardiac Medical History: Reports: None Pulmonary Medical History: Reports: None EENT Medical History: Reports: None Neurological Medical History: Reports: Hx Migraine Endocrine Medical History: Reports: None Renal/ Medical History: Denies: Hx Peritoneal Dialysis Malignancy Medical History: Reports None GI Medical History: Reports: None Musculoskeletal Medical History: Denies Hx Gout Skin Medical History: Reports None Psychiatric Medical History: Reports: None Traumatic Medical History: Reports: None Infectious Medical History: Reports: None Past Surgical History: Reports: None - Immunizations Immunizations up to date: Yes Hx Diphtheria, Pertussis, Tetanus Vaccination: Yes Review of Systems - Review of Systems Notes: Constitutional: Negative for fever. HENT: Negative for sore throat. Eyes: Negative for visual changes. Cardiovascular: Negative for chest pain. Respiratory: Negative for shortness of breath. Gastrointestinal: Negative for abdominal pain, vomiting or diarrhea. Genitourinary: Negative for dysuria. Musculoskeletal: Positive right arm pain Skin: Negative for rash. Neurological: Negative for headaches, weakness or numbness. 10 point ROS negative except as marked above and in HPI. Physical Exam - Vital signs Vitals: Temp Pulse Resp BP Pulse Ox 98.6 F 77 20 139/94 H 97 01/04/20 22:13 01/04/20 22:13 01/04/20 22:13 01/04/20 22:13 01/04/20 22:13 - Notes Notes: CONSTITUTIONAL: Well appearing in no acute distress SKIN: Warm, dry, and intact without rash EYES: Extraocular movements are grossly intact, clear conjunctiva HENT: Normocephalic, atraumatic, moist mucus membranes NECK: No obvious swelling, normal range of motion PULMONARY: Normal chest rise and fall, no respiratory distress or stridor CARDIOVASCULAR: Regular rate, distal extremities are warm and well perfused NEUROLOGIC: Normal speech, moves all extremities MUSCULOSKELETAL: There is tenderness palpation over the right shoulder and right wrist. There is pain with range of motion. PSYCHIATRIC: Normal mood and affect Course - Vital Signs Vital signs: Temp Pulse Resp BP Pulse Ox 98.6 F 72 18 136/87 H 97 01/04/20 23:32 01/04/20 23:32 01/04/20 23:32 01/04/20 23:32 01/04/20 23:32 Discharge - Discharge Clinical Impression: Right arm pain Condition: Stable Disposition: HOME, SELF-CARE Instructions: Arm Pain, Nonspecific ([facility]) Prescriptions: Ketorolac Tromethamine [Toradol 10 mg Tablet] 10 mg PO Q8HP PRN #12 tablet PRN Reason: For Pain
[2020-01-04 23:44] VITALS: BP 136/87
== END 2020-01-04 23:45 | disposition home or self-care (01) ==
LOC: ER 21:57
DX: M79.601 Pain in right arm (principal)
CPT/HCPCS: 99284; 96372; J1885

== ENCOUNTER 2020-03-05 15:59 | Emergency (ER) | payer OTHER ==
[2020-03-05 16:06] VITALS: BP 132/84
--- NOTE | 2020-03-05 17:14 | ER Document Report ---
ED General - General Chief Complaint: Numbness of Arm Stated Complaint: NUMBNESS IN ARM TRAVEL OUTSIDE OF THE [place] IN LAST 30 DAYS: No - HPI Notes: Chief Complaint: Historian: History obtained from patient HPI: This is a ROS: Constitutional: no fevers. HEENT: no HAIDER, sore throat, or vision changes. CV: no chest pain or palpitations. Resp: no cough or SOB. GI: no abdominal pain, or n/v/d. : no, electrolyte abnormality, hematuria, or incont. MSK: no back pain, no joint swelling/redness. Skin: no rashes or itching. Neuro: no seizures, weakness, numbness, or confusion. Hematological: no ecchymosis or easy bleeding. Endocrine: no polyuria/polydipsia, no heat/cold intolerance. Psych: no SI/HI, AH/VH or memory loss. PMHx: Reviewed and agree as charted by RN. PSHx: Reviewed and agree as charted by RN. SOCHx: Reviewed and agree as charted by RN. FHX: No significant familial comorbid conditions directly related to patient complaint Current Medications: Reviewed and agree with the patient medications as charted by the RN. Allergies: Reviewed and agree with the listed allergies as charted by the RN Physical Exam: Vitals: Reviewed in chart as documented by RN. General: Alert and in NAD. Head: Normocephalic; atraumatic Eyes: PERRLA, Conjunctivae clear sclerae non-icteric bilat ENT: no soft palate swelling or uvular deviation Neck: trachea midline, no unilateral swelling/tenderness/lymphadenopathy CV: RRR, no M/R/G; symmetric distal pulses Resp: respirations even and unlabored, CTA bilat. GI: abd soft and nondistended. NTTP. normal BS. no masses/HSM. no CVAT bilat MSK: FROM of all extremities. No midline CTL spine tenderness/deformity Skin: warm, moist, good turgor. no rash/lesions Neuro: Alert and oriented X 4. following CN 2-12 intact. no unilateral weakness/numbness Psych: No SI/HI or AH/VH. ED Results: Medical Decision-Making: Medical Decision-making/Differential Diagnosis: Consider various etiologies including but not limited to, radiculopathy, paresthesias, disc herniation, cubital tunnel syndrome, CVA, TIA, de Quervain's, neuropraxia, electrolyte abnormality, etc. 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 His presenting symptoms compounded with the Madelung deformity patient is likely experiencing complications including carpal tunnel like syndrome.. Is neurovascularly intact. Current plan is to place him in a Velcro wrist splint with the cock up metal bars removed as despite cost patient discomfort previously. Recommended limited range of motion/repetitive movements. Patient is attentively wrist in a neutral position especially when sleeping. Will give referral to Dr. Justice with hand surgery for follow-up. I had extensive discussion with the patient regarding his diagnosis and he agrees with the plan of care. Return factors were discussed. We will start a trial of steroid burst as well as gabapentin for the nerve pain. Also give patient a primary care doctor referral with one of our doctors that were do a single follow-up visit after an ER visit. He is to call orthopedics to schedule an appointment for soon as possible. He declines any work notes. This course of action was discussed with the patient and/or family. They were amenable to this, verbalized understanding, and were without further questions. - Related Data Allergies/Adverse Reactions: No Known Allergies Allergy (Verified 03/05/20 16:22) Past Medical History - Social History Smoking Status: Current Every Day Smoker Chew tobacco use (# tins/day): No Frequency of alcohol use: None Drug Abuse: None Family History: Reviewed & Not Pertinent, Hypertension Neurological Medical History: Reports: Hx Migraine Renal/ Medical History: Denies: Hx Peritoneal Dialysis Musculoskeletal Medical History: Denies Hx Gout - Immunizations Immunizations up to date: Yes Hx Diphtheria, Pertussis, Tetanus Vaccination: Yes Physical Exam - Vital signs Vitals: Temp Pulse Resp BP Pulse Ox 98.4 F 85 18 132/84 H 97 03/05/20 16:03 03/05/20 16:03 03/05/20 16:03 03/05/20 16:03 03/05/20 16:03 Course - Vital Signs Vital signs: Temp Pulse Resp BP Pulse Ox 98.4 F 85 18 132/84 H 97 03/05/20 16:03 03/05/20 16:03 03/05/20 16:03 03/05/20 16:03 03/05/20 16:03 - Laboratory Results Critical Laboratory Results Reviewed: No Critical Results - Radiology Results Critical Radiology Results Reviewed: No Critical Results Discharge - Discharge Clinical Impression: Madelung's deformity, Paresthesia of right upper limb Condition: Stable Disposition: HOME, SELF-CARE Instructions: Carpal Tunnel Syndrome ([facility]) Additional Instructions: you likely have ''madelung deformity'' of your wrist wrist- this is likely causing your for your pain and numbness to your right hand/arm. use wrist splint, especially at night. avoid repetitive movements of your wrist and try to keep your wrist in a neurtral position at all times. no heavy lifting or tight gripping. call Dr Justice- Hand Surgery- on [facility] to schedule an appointment for as soon as possible. you may need surgery if your symptoms dont improve. Follow all printed instructions. Take medications as prescribed. Follow up with your doctor in 2-3 days for re-check. Return to the ER if your condition worsens. Gabapentin can make you dizzy/drowsy at first. I recommend you taking the first dose at night before bed. Most people become accustomed to the medication very quickly over a day or [address] or operate heavy machinery until you know how this medication affects you. You may also take Tylenol Motrin for pain follow-up printed instructions. Return to the ER if your condition worsens Prescriptions: Gabapentin [Neurontin 300 mg Capsule] 300 mg PO Q8HP PRN #20 cap PRN Reason: Prednisone [Deltasone 20 mg Tablet] 3 tab PO DAILY 5 Days #15 tablet Referrals: ELYSIA SALAZAR MD [ACTIVE STAFF] - Follow up as needed
== END 2020-03-05 19:03 | disposition home or self-care (01) ==
LOC: ER 15:59
DX: Q74.0 Other congenital malformations of upper limb(s), including shoulder girdle (principal); R20.0 Anesthesia of skin; F17.200 Nicotine dependence, unspecified, uncomplicated
CPT/HCPCS: 99283